=== PATIENT | female | born 1935 | race Caucasian/White ===

== ENCOUNTER → 2018-02-16 12:06 | Outpatient (CLI) | payer MEDICARE, OTHER, SELFPAY ==
--- NOTE | 2018-02-16 | DI.RAD.S_ITS ---
PROCEDURE: XR CHEST 2V INDICATIONS: OTHER DISORDERS OF LUNG TECHNIQUE: 2 views of the chest were acquired. COMPARISON: [facility], CHEST 2 VIEW, 09/09/2017, 11:51. [facility], CHEST 2 VIEW, 11/15/2014, 14:43. [facility], CHEST 2 VIEW, 08/29/2008, 15:47. FINDINGS: Surgical changes and devices: None. Lungs and pleura: No pleural effusions or pneumothorax. Lungs are free of focal midlung radiodensity in the area of prior plain film concern from 09/09/17 on the right. There is a minimal degree of lung scarring at the right lung base more inferiorly. Resolution of a small pleural effusion on the left has occurred. Prominent convex rightward scoliosis is again noted distorting the lung parenchyma. Mediastinum: Mediastinal contours are normal. Heart size is normal. Bones and chest wall: No suspicious bony abnormalities. Soft tissues appear unremarkable. IMPRESSION: No underlying pneumonia or neoplasm suspected. Prominent convex rightward scoliosis centered at the mid third of the thoracic spine. Dictated by: Gage Alaniz M.D. on 02/16/2018 at 12:57 Approved by: Gage Alaniz M.D. on 02/16/2018 at 12:58
[2018-02-16 13:25] LABS: Add Manual Diff / Slide Review NO; Basophils Percent Auto 0.3 % (0-2); Eosinophils Percent Auto 1.5 % (2-4); Hemoglobin 12.8 g/dL (12.0-16.0); Lymphocytes Percent Auto 25.2 % (25-40); Mean Corpuscular HGB Conc 33.6 % (30-36); Mean Corpuscular Hemoglobin 29.5 PG (26-34); Mean Corpuscular Volume 87.8 fL (80-100); Monocytes Percent Auto 10.1 % (3-14); Neutrophils Absolute Auto 4200 /uL (3000-5900); Neutrophils Percent Auto 62.9 % (50-75); Platelet Count 216 X10^3/uL (150-400); Red Blood Cell Count 4.33 X10^6/uL (4.0-5.2); Red Cell Distribution Width 15.6 % (11.6-14.8); White Blood Cell Count 6.6 X10^3/uL (4.5-11.0)
[2018-02-16 14:00] LABS: Alanine Aminotransferase 55 IU/L (9-52); Albumin 4.3 g/dL (3.5-5.0); Albumin Globulin Ratio 1.4 (1.0-2.8); Alkaline Phosphatase 103 U/L (38-126); Aspartate Aminotransferase 51 IU/L (14-36); BUN Creatinine Ratio 26.7 (6-22); Bilirubin Total 0.6 mg/dL (0.2-1.3); Blood Urea Nitrogen 16 mg/dL (7-17); Calcium 10.5 mg/dL (8.4-10.2); Carbon Dioxide 30 mmol/L (22-32); Chloride 102 mmol/L (98-107); Estimated Glomerular Filt Rate > 60.0 mL/min (>60); Glucose 93 mg/dL (80-110); HEMOLYSIS 38 (0-50); Potassium 4.9 mmol/L (3.4-5.1); Sodium 143 mmol/L (137-145); Total Protein 7.3 g/dL (6.3-8.2)
[2018-02-16 14:27] LABS: Thyroid Stimulating Hormone 0.83 uIU/mL (0.47-4.68)
== END ==
PROVIDERS: PCP Internal Medicine; Visit Provider Internal Medicine
DX: J98.4 Other disorders of lung (principal); E03.9 Hypothyroidism, unspecified; R63.4 Abnormal weight loss
CPT/HCPCS: 36415; 71046; 80053; 84443; 85025

== ENCOUNTER → 2018-03-02 07:32 | Outpatient (CLI) | payer MEDICARE, OTHER, SELFPAY ==
--- NOTE | 2018-03-02 | DI.US.S_ITS ---
PROCEDURE: US ABDOMEN COMPLETE INDICATIONS: ABNORMAL LFTS TECHNIQUE: Real-time scanning was performed of the abdominal and retroperitoneal organs, with image documentation. COMPARISON: [facility], CT, CT-IVP, 09/15/2010, 13:41. [facility], US, ABDOMEN COMPLETE, 09/27/2006, 8:45. FINDINGS: Liver: Liver is normal in size and homogeneous in echotexture. Gallbladder: The gallbladder is absent Lower fossa is unremarkable. Biliary ducts: Intrahepatic bile ducts are non-dilated. Extrahepatic bile duct is not well seen. Normal is 6-7 mm or less in diameter, or 10 mm or less post-cholecystectomy. Pancreas: Not visualized. Spleen: Spleen is normal in size and homogeneous in echotexture. Kidneys: Kidneys are normal in size and echotexture. Right kidney measures 8.3 cm long; left kidney measures 9.3 cm long. No hydronephrosis or nephrolithiasis. No solid masses. Aorta: Not well-seen. Iliacs: Proximal common iliac arteries are not well seen. IVC: Intrahepatic inferior vena cava is well seen. Miscellaneous: No free abdominal fluid. IMPRESSION: 1. Cholecystectomy. 2. No focal hepatic lesion is identified. Dictated by: Shirley Cuevas M.D. on 03/02/2018 at 11:03 Approved by: Shirley Cuevas M.D. on 03/02/2018 at 11:05
== END ==
PROVIDERS: PCP Internal Medicine; Visit Provider Internal Medicine
DX: R94.5 Abnormal results of liver function studies (principal)
CPT/HCPCS: 76700

== ENCOUNTER → 2018-07-13 16:02 | Outpatient (CLI) | payer MEDICARE, OTHER, SELFPAY ==
[2018-07-13 17:24] LABS: BUN Creatinine Ratio 35.7 (6-22); Blood Urea Nitrogen 25 mg/dL (7-17); Calcium 10.3 mg/dL (8.4-10.2); Carbon Dioxide 34 mmol/L (22-32); Chloride 98 mmol/L (98-107); Estimated Glomerular Filt Rate > 60.0 mL/min (>60); Glucose 90 mg/dL (80-110); HEMOLYSIS < 15 (0-50); Potassium 4.6 mmol/L (3.4-5.1); Sodium 141 mmol/L (137-145)
[2018-07-13 17:52] LABS: Thyroid Stimulating Hormone 3.77 uIU/mL (0.47-4.68)
[2018-07-16 15:58] LABS: Parathyroid Hormone Int 99 pg/mL (14-64)
== END ==
PROVIDERS: PCP Internal Medicine; Visit Provider Internal Medicine
DX: E03.9 Hypothyroidism, unspecified (principal); I10 Essential (primary) hypertension; E83.52 Hypercalcemia
CPT/HCPCS: 36415; 80048; 83970; 84443

== ENCOUNTER → 2018-07-18 14:16 | Outpatient (CLI) | payer MEDICARE, OTHER, SELFPAY | PROVIDERS: PCP Internal Medicine; Visit Provider Internal Medicine | DX: M81.0 Age-related osteoporosis without current pathological fracture (principal); Z78.0 Asymptomatic menopausal state; E07.9 Disorder of thyroid, unspecified; Z85.3 Personal history of malignant neoplasm of breast; Z82.62 Family history of osteoporosis | CPT/HCPCS: 77080 ==

== ENCOUNTER → 2018-08-09 10:34 | Outpatient (CLI) | payer MEDICARE, OTHER, SELFPAY ==
--- NOTE | 2018-08-09 | DI.US.S_ITS ---
PROCEDURE: US THYROID INDICATIONS: HYPERPARATHYROIDISM, UNSPECIFIED TECHNIQUE: Real-time scanning was performed of the thyroid gland, with image documentation. COMPARISON: [facility], ID, ID PARATHYROID SPECT, 08/09/2018, 11:06. FINDINGS: Right: Thyroid lobe measures 2.9 x 0.7 x 1.2 cm, and is homogeneous in echotexture. Left: Thyroid lobe measures 3.4 x 0.9 x 0.5 cm, and is homogenous in echotexture. Isthmus: 2 mm thick. Nodule number: 1 Location: Right mid lobe Size: 0.7x 0.4 x 0.5 cm. Composition: Predominantly solid Echogenicity: Iso-hypoechoic Shape: wider than tall. Margins: Indistinct Echogenic foci: Macrocalcification Total points: 4 ACR TI-RADS category: Moderately suspicious, continued followup recommended. No extrathyroidal nodules to raise possibility of parathyroid adenoma. Normal parathyroid glands are not visible. IMPRESSION: 1. No sonographic evidence of parathyroid adenoma. 2. Moderately suspicious, subcentimeter size right thyroid nodule for which continued followup as described below is recommended. 3. Diminutive thyroid gland raising possibility of exogenous hormone administration. ACR TI-RADS definitions and recommendations: TI-RADS 1 (benign): 0 points. FNA not needed. TI-RADS 2 (not suspicious): 2 points. FNA not needed. TI-RADS 3 (mildly suspicious): 3 points. * FNA if 2.5 cm or larger, follow up if 1.5 cm or larger (at 1, 3, and 5 years). TI-RADS 4 (moderately suspicious): 4-6 points. * FNA if 1.5 cm or larger, follow up if 1 cm or larger (at 1, 2, 3, and 5 years). TI-RADS 5 (highly suspicious): 7 points or more. * FNA if 1 cm or larger, follow up if 0.5 cm or larger (every year for 5 years). Dictated by: Bianca Garcia M.D. on 08/09/2018 at 14:18 Approved by: Bianca Garcia M.D. on 08/09/2018 at 14:25
--- NOTE | 2018-08-09 | DI.NM.S_ITS ---
PROCEDURE: NM PARATHYROID SPECT RADIOPHARMACEUTICAL: 25.6 mCi Tc-99m sestamibi IV. INDICATIONS: Hyperparathyroidism, unspecified TECHNIQUE: After intravenous administration of Tc-99m sestamibi, anterior planar images of the neck and mediastinum were obtained at approximately 10 minutes and 2-3 hours. SPECT images were acquired after the 10 minute planar images. COMPARISON: None. FINDINGS: On the early images, the thyroid gland is bilobed and has mildly diminutive size and grossly normal morphology. There is no focal increased activity in the thyroid bed. The delayed images show no preferential tracer retention in the thyroid bed to suggest parathyroid adenoma. The SPECT images demonstrate no abnormal activity in the neck. IMPRESSION: No scintigraphic evidence of parathyroid adenoma. Dictated by: Bianca Garcia M.D. on 08/09/2018 at 15:17 Approved by: Bianca Garcia M.D. on 08/09/2018 at 15:22
== END ==
PROVIDERS: PCP Internal Medicine; Visit Provider Internal Medicine
DX: E21.3 Hyperparathyroidism, unspecified (principal); E04.1 Nontoxic single thyroid nodule
CPT/HCPCS: 76536; 78071; A9500